=== PATIENT | female | born 1950 ===

== ENCOUNTER 2017-07-25 09:33 | Day surgery (SDC) | payer OTHER ==
[2017-07-25 10:10] VITALS: BMI 26.9
[2017-07-25 10:42] LABS: HEMOGLOBIN 13.5 g/dL (12.0-16.0); MEAN CELL VOLUME 81.7 fl (81.0-99.0); MEAN CORPUSCULAR HEMOGLOBIN 25.9 pg (27.0-31.0); MEAN CORPUSCULAR HGB CONC 31.8 g/dL (33.0-37.0); RBC 5.2 Mil/uL (3.80-5.20); RED CELL DISTRIBUTION WIDTH 14.1 % (11.5-14.5); WHITE BLOOD COUNT 7.1 K/uL (4.8-10.8)
[2017-07-25 10:55] LABS: BLOOD UREA NITROGEN 16 mg/dl (7-17); CALCIUM 9.3 mg/dL (8.4-10.2); GFR AFRICAN-AMERICAN > 60; GFR NON-AFRICAN AMERICAN > 60
[2017-07-25 10:57] VITALS: RESP 18
[2017-07-25 11:06] LABS: PARTIAL THROMBOPLASTIN TIME 27.6 Seconds (25.6-37.1); PROTHROMBIN TIME 10.5 Seconds (9.8-13.1)
[2017-07-25] MEDS ORDERED: Lidocaine 1% Inj (20ml) ONE (13:07)
[2017-07-25] MEDS ORDERED: Bupivacaine 0.5% Inj(30mL) ONE (13:07)
[2017-07-25] MEDS ORDERED: Propofol 10 mg/ml Inj (20 ML) ONE (14:27)
[2017-07-25] MEDS ORDERED: Midazolam 2 MG/2 ML VIAL ONE (14:27)
[2017-07-25] MEDS ORDERED: Lactated Ringer's 1,000 ML IV ONE (14:30)
--- NOTE | 2017-07-25 15:28 | PCM.SURG1 ---
Surgeon's Initial Post Op Note - Surgeon's Notes Surgeon: Dr Maza Steel Turner: Dr Andrade pGY3 Type of Anesthesia: General LMA Pre-Operative Diagnosis: right breast lesions x 2 Operative Findings: two breast masses Post-Operative Diagnosis: as above Operation Performed: excision of breast mass x2 Specimen/Specimens Removed: breast mass (2 lesions within same specimen) Estimated Blood Loss: EBL {In ML}: 10 Blood Products Given: N/A Drains Used: No Drains Post-Op Condition: Good Date of Surgery/Procedure: 07/25/17 Time of Surgery/Procedure: 15:28
[2017-07-25] MEDS ORDERED: Oxycodone/Acetaminophen 5/325 mg Tab PO PRN (15:29)
--- NOTE | 2017-07-25 15:29 | CP.SDSHP ---
Same Day Surgery H & P - History Proposed Procedure: right breast mass excision Pre-Op Diagnosis: right breast mass - Previous Medical/Surgical History Pain: 1. - Allergies Allergies: Allergies No Known Allergies Allergy (Verified 07/25/17 10:11) - Physical Exam Vital Signs: Vital Signs 07/25/17 07/25/17 10:56 11:01 Temperature 98.5 F Pulse Rate 66 66 Respiratory 18 Rate Blood Pressure 147/69 O2 Sat by Pulse 98 Oximetry Mental Status: Alert & Oriented x3 Neuro: WNL Heart: WNL Lungs: WNL - {Optional Preform as Required} Abdomen: WNL - Impression Impression: right breast mass Pt. Evaluated Today:Candidate for Anesthesia & Procedure: Yes Short Stay Discharge - Short Stay Discharge Admitting Diagnosis/Reason for Visit: N63.10 Disposition: HOME/ ROUTINE Referrals: FAMILY PROVIDER,NO [Primary Care Provider] -
--- NOTE | 2017-07-25 15:30 | RAD ---
HISTORY: pre-op COMPARISON: Upper TECHNIQUE: Chest PA and lateral FINDINGS: LUNGS: Questionable right upper lobe mass. PLEURA: No significant pleural effusion identified. No pneumothorax apparent. CARDIOVASCULAR: Normal. OSSEOUS STRUCTURES: No significant abnormalities. VISUALIZED UPPER ABDOMEN: Normal. OTHER FINDINGS: Questionable right hilar adenopathy. The finding is marked on the study for review. IMPRESSION: Indeterminate/suspicious findings right lung, right hilum. In the absence of comparison chest radiographs follow-up recommended. CT scan advised for further assessment.
[2017-07-25] MEDS: HYDROmorphone 0.5 mg/0.5 ml ISec IVP PRN ×2 (16:30→16:48)
[2017-07-25 17:35] VITALS: O2SAT 97
[2017-07-25 19:22] VITALS: BP 129/69; PULSE 69; TEMP 97.6
--- NOTE | 2017-07-26 05:02 | OP ---
PROCEDURE DATE: 07/25/2017 SURGEON: Ronda Maza MD LOAN INTERVIEWER: Dr. Andrade. ANESTHESIA: General. ANESTHESIA ADMINISTERED BY: Dr. Van. PREOPERATIVE DIAGNOSIS: Two right breast cutaneous and parenchymal lesions. POSTOPERATIVE DIAGNOSIS: Two right breast cutaneous and parenchymal lesions. PROCEDURE: Excision of two masses, right breast. DESCRIPTION OF OPERATION: With the patient in the supine position under adequate general anesthesia, the right breast was prepped and draped in the usual sterile manner. The patient was noted to have a lesion elevated above the skin level just adjacent and just above the right nipple within the areolar margin, which had a scabbed outer surface and there was a second cutaneous lesion approximately 2 inches lateral to this, which also had a mildly elevated cutaneous appearance. An elliptical incision was made to encompass both lesions and the lateral lesion was dissected off the underlying breast tissue along with the skin with no evidence of a deep parenchymal lesion. The areolar lesion was freed from the surrounding subcutaneous tissue and deep to the elevated skin lesion, was a rounded white soft mass with the appearance of either a sebaceous-type cyst or a ductal cystic lesion and the entire lesion was sharply dissected free of the surrounding breast tissue and removed along with the ellipse of skin. The operative site was examined for hemostasis and closure was performed with interrupted sutures of 3-0 Vicryl followed by running subcuticular suture of 4-0 Monocryl and Steri-Strips. Dry sterile dressing was applied. The patient tolerated the procedure well and transferred to recovery room in stable condition. Estimated blood loss for the procedure was 10 mL. Ronda Maza MD
--- NOTE | 2017-07-26 18:23 | CARD ---
APPROVED REPORT EKG Measurement Heart [id number] PA 124P5 [id number] <Conclusion> Normal sinus rhythm Normal ECG
== END 2017-07-25 19:35 | disposition home or self-care (01) ==
LOC: H.OPSURG 09:33
PROVIDERS: ATTEND Specialist
DX: N63.10 Unspecified lump in the right breast, unspecified quadrant (principal)
CPT/HCPCS: 11401; 19120; 36415; 71046; 80048; 85027; 85610; 85730; 88307; 93005; J0690; J1170; J2001; J2250; J2405; J2704; J3010; J7030; J7120

== ENCOUNTER 2017-08-21 09:15 | Inpatient (IN) | payer OTHER, SELFPAY ==
[2017-08-15 11:35] VITALS: BMI 23.8
[2017-08-21] MEDS ORDERED: Rocuronium 10 mg/ml (5 ml) ONE (13:23)
[2017-08-21] MEDS ORDERED: Propofol 10 mg/ml Inj (20 ML) ONE (13:23)
[2017-08-21] MEDS ORDERED: Succinylcholine 200 mg/10 ml Inj IV ONE (13:23)
[2017-08-21] MEDS ORDERED: Lidocaine 1% Inj (20ml) ONE (13:54)
[2017-08-21] MEDS ORDERED: Bupivacaine 0.5% Inj(30mL) ONE (13:54)
[2017-08-21] MEDS ORDERED: Lactated Ringer's 1,000 ML IV ONE ×2 (14:00→14:40)
[2017-08-21] MEDS ORDERED: Midazolam 2 MG/2 ML VIAL ONE (14:02)
[2017-08-21] MEDS ORDERED: ePHEDrine 50 mg/ml Inj ONE (14:58)
[2017-08-21] MEDS ORDERED: Nitroglycerin 2% Ointment Foilpak UD TOP ONE (15:39)
[2017-08-21] MEDS ORDERED: Labetalol 5mg/ml (4ml) ONE (15:44)
[2017-08-21] MEDS ORDERED: Oxycodone/Acetaminophen 5/325 mg Tab PO PRN (15:48)
--- NOTE | 2017-08-21 15:54 | PCM.SURG1 ---
Surgeon's Initial Post Op Note - Surgeon's Notes Surgeon: Dr Maza Drug Enforcement Administration Agent: Dr Andrade PGY3, Dr Cruz PGY2, Dr Mendez PGY1 Type of Anesthesia: General Endo Pre-Operative Diagnosis: invasive ductal Ca of right breast Operative Findings: see report Post-Operative Diagnosis: as above Operation Performed: right modified radical mastectomy Specimen/Specimens Removed: right breast w/ nipple complex, right axilla dissection Estimated Blood Loss: EBL {In ML}: 40 Blood Products Given: N/A Drains Used: Jose Post-Op Condition: Good Date of Surgery/Procedure: 08/21/17 Time of Surgery/Procedure: 15:54
[2017-08-21] MEDS ORDERED: Lactated Ringer's 1,000 ML IV SCH (16:00)
[2017-08-21] MEDS: HYDROmorphone 0.5 mg/0.5 ml ISec IVP PRN ×2 (16:30→16:45)
--- NOTE | 2017-08-21 17:33 | NM ---
HISTORY: [age] year old female with rightbreast cancer. TECHNIQUE: Informed consent obtained. Time-out procedure performed. Sterile technique utilized For separate injections -totaling - 1.0 mCi of 99m Tc filtered sulfur colloid (total volume of 10 ml) were administered into the right periareolar intra/subdermal locations 12, 3, 6 and 9 o'clock positions. Anterior and oblique projection images of the chest/ axilla were subsequently obtained. FINDINGS: Confirmation of the 4 sites of injection. One focus/ node of activity is seen filling between 1/3-1/2rd the distance between the injection sites and the right axillary marker. Right axillary lymph nodes per se are not clearly identified. IMPRESSION: Successful sentinel node procedure with 1 node of activity accumulating radionuclide between the periareolar injection sites and the right axilla. Comments: The case was subsequently discussed with Dr. Ronda Maza
[2017-08-22 07:25] LABS: MEAN CELL VOLUME 81.9 fl (81.0-99.0); MEAN CORPUSCULAR HEMOGLOBIN 26.7 pg (27.0-31.0); MEAN CORPUSCULAR HGB CONC 32.6 g/dL (33.0-37.0); RBC 4.48 Mil/uL (3.80-5.20); RED CELL DISTRIBUTION WIDTH 13.9 % (11.5-14.5); WHITE BLOOD COUNT 10.6 K/uL (4.8-10.8)
[2017-08-22 07:32] LABS: BLOOD UREA NITROGEN 16 mg/dl (7-17); CALCIUM 8.2 mg/dL (8.4-10.2); GFR AFRICAN-AMERICAN > 60; GFR NON-AFRICAN AMERICAN > 60
[2017-08-22 08:15] LABS: PARTIAL THROMBOPLASTIN TIME 19.4 Seconds (25.6-37.1); PROTHROMBIN TIME 11.2 Seconds (9.8-13.1)
[2017-08-22] MEDS ORDERED: Influenza Vaccine 18yr & older 0.5 ML/45 MCG SYR IM ONE (09:00)
[2017-08-22] MEDS ORDERED: Pneumococcal 23-Valent Vaccine IM ONE (09:00)
[2017-08-22] MEDS ORDERED: Enoxaparin 40 mg Syringe SC SCH (09:00)
--- NOTE | 2017-08-22 09:15 | CP.PCM.PN ---
Subjective - Date & Time of Evaluation Date of Evaluation: 08/22/17 Time of Evaluation: 09:10 - Subjective Subjective: General Surgery: Dr Maza Pt S&E on med/surg. Pt is POD#1 s/p right modified radical mastectomy. Pt reports she is doing well. Pain is minimal and well controlled on percocet. Denies any n/v, fevers or chills. Denies any paresthesias to the right arm. She has been using incentive spirometer. She is OOB and ambulating and tolerating diet. Perry w/ ~75cc overnight - serosanguinous Objective - Vital Signs/Intake and Output Vital Signs (last 24 hours): Temp Pulse Resp BP Pulse Ox 98.4 F 50 L 20 110/67 94 L 08/22/17 08:38 08/22/17 08:38 08/22/17 08:38 08/22/17 08:38 08/22/17 08:38 Intake and Output: 08/22/17 08/22/17 06:59 18:59 Output Total 475 Balance -475 - Medications Medications: Current Medications Enoxaparin Sodium (Lovenox) 40 mg SC DAILY SERAFIN PRN Reason: Protocol Lactated Ringer's (Lactated Ringer's) 1,000 mls @ 100 mls/hr IV .Q10H SERAFIN Last Admin: 08/21/17 22:36 Dose: 100 mls/hr Losartan Potassium (Cozaar) 50 mg PO BID [facility] Oxycodone/Acetaminophen (Percocet 5/325 Mg Tab) 1 tab PO Q4 PRN PRN Reason: Pain, moderate (4-7) Stop: 08/24/17 15:49 - Labs Labs: 08/22/17 06:00 08/22/17 06:00 PT 11.2 Seconds (9.8-13.1) 08/22/17 06:00 INR 1.0 (0.9-1.2) 08/22/17 06:00 APTT 19.4 Seconds (25.6-37.1) L 08/22/17 06:00 - Constitutional Appears: Non-toxic, No Acute Distress - Head Exam Head Exam: NORMOCEPHALIC - Eye Exam Eye Exam: Normal appearance - ENT Exam ENT Exam: Mucous Membranes Moist - Respiratory Exam Respiratory Exam: absent: Accessory Muscle Use, Respiratory Distress - Cardiovascular Exam Cardiovascular Exam: REGULAR RHYTHM. absent: Tachycardia Additional comments: Chest dressing is c/d/i - GI/Abdominal Exam GI & Abdominal Exam: Soft. absent: Distended, Firm, Tenderness - Extremities Exam Extremities Exam: absent: Pedal Edema - Neurological Exam Neurological Exam: Alert, Awake, Oriented x3 - Psychiatric Exam Psychiatric exam: Normal Affect, Normal Mood - Skin Skin Exam: Normal Color, Warm Assessment and Plan - Assessment and Plan (Free Text) Assessment: 67F POD#1 s/p right modified radical mastectomy for invasive ductal ca. Plan: monitor perry output CT abd/pel w/ IV contrast bone scan today pt will likely be d/c once imaging has been completed will d/w Dr Link Andrade, PGY3
--- NOTE | 2017-08-22 12:22 | OP ---
PROCEDURE DATE: 08/21/2017 SURGEON: Ronda Maza MD ASSISTANTS: Dr. Rachel and Dr. Cruz. ANESTHESIA: General, Dr. Kuhn. PREOPERATIVE DIAGNOSIS: Carcinoma of right breast. POSTOPERATIVE DIAGNOSIS: Carcinoma of right breast. PROCEDURE: Right modified radical mastectomy. DESCRIPTION OF OPERATION: With the patient in the supine position under adequate general anesthesia, the right chest and upper arm were prepped and draped in the usual sterile manner. The patient had a healing incision extending from just above the right nipple to 1 inch lateral to the areolar margin where cutaneous lesions had been removed and the elliptical incision was marked to include this incision. The upper incision was made, taken down through the subcutaneous tissue, and the upper skin flap was raised up to the upper edge of the pectoralis. The lower flap was also incised and then the lower flap raised down to the chest wall. There was no adherence or evidence of any involvement of the skin in raising of these flaps. The patient had undergone sentinel lymph node injection; however, scanning did not reveal localization to the axilla and while there was intermittent activity noted in the area of the axilla, no definite sentinel node could be identified. The breast was dissected off the chest wall and freed up to the area of the axilla, the axillary fascia was incised, the axillary vein was identified, and fatty and lymphatic tissue was dissected down from the area of the vein. Minimal identifiable lymphatic material was identified. Attachments were hemoclipped and the axillary contents were removed. The area adjacent to the chest wall and deep to the pectoralis was again checked with the NeoProbe and palpated and no significant axillary activity or palpable nodes were identified. The specimen was removed and the medial edge of the skin flap was marked with a silk suture. Hemostasis was achieved with cautery and a 19-[place] Jose drain was placed in the axilla and beneath the skin flap and then brought out through a lower lateral stab incision and after irrigation with sterile water, the wound was closed with orlin. A dry sterile compression dressing was applied. The patient tolerated the procedure well and transferred to the recovery room in stable condition. Estimated blood loss for the procedure was 40 mL. Ronda Maza MD MTDPamela
[2017-08-22] MEDS ORDERED: Iohexol 300 100 ML IJ ONE (12:57)
[2017-08-22] MEDS ORDERED: Sodium Chloride 0.9% 100 ML ONE (12:57)
--- NOTE | 2017-08-22 13:58 | CT ---
PROCEDURE: CT Chest, Abdomen and Pelvis with intravenous contrast HISTORY: r/o mets COMPARISON: None. TECHNIQUE: IV dose administered: 100 mL Omnipaque 300 Radiation dose: Total exam DLP = 833.2 mGy-cm. This CT exam was performed using one or more of the following dose reduction techniques: Automated exposure control, adjustment of the mA and/or kV according to patient size, and/or use of iterative reconstruction technique. FINDINGS: LUNGS: Clear. No nodule, mass or consolidation. MEDIASTINUM: Unremarkable. Normal caliber aorta and pulmonary arterial trunk. No aortic dissection. Normal size heart. LYMPH NODES: Unremarkable. PLEURA: Unremarkable. No pneumothorax. No pleural fluid. LIVER: Hepatic steatosis. Scattered calcified granulomas. No gross lesion or ductal dilatation. GALLBLADDER AND BILE DUCTS: Unremarkable. PANCREAS: Unremarkable. No gross lesion or ductal dilatation. SPLEEN: Unremarkable. ADRENALS: Unremarkable. No mass. KIDNEYS AND URETERS: Unremarkable. No hydronephrosis. No solid mass. VASCULATURE: Common origin of the brachiocephalic and left common carotid arteries. No aortic aneurysm. BOWEL: Unremarkable. No obstruction. No gross mural thickening. APPENDIX: Normal appendix. PERITONEUM: Unremarkable. No free fluid. No free air. LYMPH NODES: Enhancing right axillary lymph node measuring 1.3 x 0.9 cm (series 2, image 58). BLADDER: Unremarkable. REPRODUCTIVE: Unremarkable. BONES: Sclerotic 3.0 x 0.6 cm lesion in the right posterior 4th rib. Sclerotic focus in the anterolateral left 6th rib. Patchy sclerosis in the medial iliac bones adjacent to the sacroiliac joints bilaterally. Additional tiny scattered sclerotic foci in the iliac wings bilaterally. No acute fracture. OTHER FINDINGS: Hypoattenuating 1.2 x 1.6 cm left thyroid nodule. Nonvisualization of the right thyroid. Status post right mastectomy with postsurgical changes evident and surgical drain in place. IMPRESSION: Status post right mastectomy with postsurgical changes. Enhancing right axillary lymph node. Metastatic involvement cannot be excluded. Multiple osseous sclerotic foci including the posterior right 4th rib and anterolateral left 6th rib as well as in the iliac bones bilaterally. Metastatic involvement cannot be excluded. Hypoattenuating 1.6 cm left thyroid nodule. Dedicated thyroid ultrasound can be obtained for further evaluation as clinically warranted.
--- NOTE | 2017-08-22 14:44 | CP.PCM.DIS ---
Provider - Provider Date of Admission: 08/21/17 15:43 Attending physician: Ronda Maza MD Primary care physician: NO FAMILY PROVIDER Time Spent in preparation of Discharge (in minutes): 5 Hospital Course - Lab Results Lab Results: Most Recent Lab Values WBC 10.6 K/uL (4.8-10.8) 08/22/17 06:00 RBC 4.48 Mil/uL (3.80-5.20) 08/22/17 06:00 Hgb 12.0 g/dL (12.0-16.0) 08/22/17 06:00 Hct 36.7 % (34.0-47.0) 08/22/17 06:00 MCV 81.9 fl (81.0-99.0) 08/22/17 06:00 MCH 26.7 pg (27.0-31.0) L 08/22/17 06:00 MCHC 32.6 g/dL (33.0-37.0) L 08/22/17 06:00 RDW 13.9 % (11.5-14.5) 08/22/17 06:00 Plt Count 187 K/uL (130-400) 08/22/17 06:00 PT 11.2 Seconds (9.8-13.1) 08/22/17 06:00 INR 1.0 (0.9-1.2) 08/22/17 06:00 APTT 19.4 Seconds (25.6-37.1) L 08/22/17 06:00 Sodium 137 mmol/l (132-148) 08/22/17 06:00 Potassium 4.1 MMOL/L (3.6-5.0) 08/22/17 06:00 Chloride 103 mmol/L (98-107) 08/22/17 06:00 Carbon Dioxide 23 mmol/L (22-30) 08/22/17 06:00 Anion Gap 15 (10-20) 08/22/17 06:00 BUN 16 mg/dl (7-17) 08/22/17 06:00 Creatinine 0.8 mg/dl (0.7-1.2) 08/22/17 06:00 Est GFR ( Amer) > 60 08/22/17 06:00 Est GFR (Non-Af Amer) > 60 08/22/17 06:00 Random Glucose 91 mg/dL (65-105) 08/22/17 06:00 Calcium 8.2 mg/dL (8.4-10.2) L 08/22/17 06:00 - Hospital Course Hospital Course: 67M admitted on 08/21/17 s/p right modified radical mastectomy. Pt was kept overnight for pain control and to monitor for bleeding. Pt received CT abd/pel of chest and abd as well as bone scan POD#1 to assess for mets. Tolerated surgery well. D/c today 08/22 with Rx for pain control and follow up next in clinic. PT will be d/c with perry drain in place. Drain care instructions provided by nursing Discharge Exam - Head Exam Head Exam: NORMOCEPHALIC Discharge Plan - Discharge Medications Prescriptions: oxyCODONE/Acetaminophen [Percocet 5/325 mg Tab] 1 tab PO Q4 PRN #20 tab PRN Reason: Pain, Moderate (4-7) - Follow Up Plan Condition: GOOD Disposition: HOME/ ROUTINE Instructions: Mastectomy, New-Ortez Drain Additional Instructions: follow up with Dr. Maza in clinic next Take all medication as prescribed Patient can shower Saturday. Do not soak incisions; no pools, tubs, baths Call Dr. Maza if fever <100.4, pain, redness, swelling, drainage from incision Referrals: [facility] [Outside] Ronda Maza MD [Staff Provider] - FAMILY PROVIDER,NO [Primary Care Provider] -
[2017-08-22 16:20] VITALS: BP 114/64; PULSE 81; RESP 18; TEMP 98.9; O2SAT 96
--- NOTE | 2017-08-23 13:18 | NM ---
PROCEDURE: Whole Body Bone Scan HISTORY: r/o distant mets COMPARISON: None available. TECHNIQUE: Following administration of 22.4 miCu of Tc MDP multiplanar whole body images were obtained. FINDINGS: Evidence for bony metastatic disease: None. Degenerative uptake: None. Physiologic uptake: Normal physiologic activity in the kidneys. Other findings: None. IMPRESSION: No evidence of bony metastatic disease.
== END 2017-08-22 15:30 | disposition home or self-care (01) | DRG 258 ==
LOC: H.OPSURG 09:15 → H.MEDSURG1 15:43
PROVIDERS: ADMIT Specialist; ATTEND Specialist
PROC: 0HTT0ZZ Resection of Right Breast, Open Approach (ICD-10-PCS; principal; 2017-08-21 13:30)
PROC: 3E0234Z Introduction of Serum, Toxoid and Vaccine into Muscle, Percutaneous Approach (ICD-10-PCS; 2017-08-22)
DX: C50.911 Malignant neoplasm of unspecified site of right female breast (principal); I10 Essential (primary) hypertension; Z23 Encounter for immunization

== ENCOUNTER 2018-05-04 19:20 | Emergency (ER) | payer SELFPAY ==
[2018-05-04 19:21] VITALS: BMI 23.8
[2018-05-04] MEDS ORDERED: Sodium Chloride 0.9% 1,000 ML IV STA (20:18)
[2018-05-04 20:52] LABS: BASO % 0.3 % (0.0-2.0); EOS % 0.2 % (0.0-4.0); HEMOGLOBIN 13.9 g/dL (12.0-16.0); LYMPH # 1.6 K/uL (1.0-4.3); LYMPH % 15.4 % (20.0-40.0); MEAN CELL VOLUME 81.4 fl (81.0-99.0); MEAN CORPUSCULAR HEMOGLOBIN 26.1 pg (27.0-31.0); MEAN CORPUSCULAR HGB CONC 32.1 g/dL (33.0-37.0); MEAN PLATELET VOLUME 8.7 fl (7.2-11.7); MONO # 0.3 K/uL (0.0-0.8); MONO % 2.8 % (0.0-10.0); NEUT # 8.4 K/uL (1.8-7.0); NEUT % 81.3 % (50.0-75.0); RBC 5.34 Mil/uL (3.80-5.20); RED CELL DISTRIBUTION WIDTH 13.7 % (11.5-14.5); WHITE BLOOD COUNT 10.3 K/uL (4.8-10.8)
[2018-05-04 21:01] LABS: BLOOD UREA NITROGEN 16 mg/dl (7-17); CALCIUM 8.9 mg/dL (8.4-10.2); GFR NON-AFRICAN AMERICAN > 60
--- NOTE | 2018-05-04 21:45 | ED PDOC ---
HPI: Headache Time Seen by Provider: 05/04/18 20:01 Chief Complaint (Nursing): Headache Chief Complaint (Provider): Headache History Per: Patient History/Exam Limitations: no limitations Onset/Duration Of Symptoms: Days (7x days intermittently, worse since 2x hours ago) Current Symptoms Are (Timing): Still Present Severity: Moderate Associated Symptoms: Vomiting, Other (epigastric discomfort after vomiting. left ear pain for 1x week. dizziness.) Additional History Per: Patient Additional Complaint(s): 67 year old female with a past medical history of hypertension and breast cancer (mastectomy years ago) presents to the ED with complaints of dizziness (room spinning) accompanied by a headache and vomiting that started 2x hours ago when she was on her way home from [place]. Patient states she has had similar intermittent symptoms for the past 1x weeks, accompanied by left ear pain for 1x week. Patient states she had epigastric abdominal discomfort after vomiting today. Patient reports having similar symptoms a long time ago. Patient denies having diarrhea, chest pain, and fevers. PMD: None. Past Medical History Reviewed: Historical Data, Nursing Documentation, Vital Signs Vital Signs: Last Vital Signs Temp 97.8 F 05/04/18 19:22 Pulse 68 05/04/18 19:22 Resp 16 05/04/18 19:22 BP 155/82 H 05/04/18 19:22 Pulse Ox 99 05/04/18 19:22 - Medical History PMH: HTN, Malignancy (history of breast cancer) Denies: Chronic Kidney Disease - Surgical History Other surgeries: mastectomy - Family History Family History: States: No Known Family Hx - Social History Alcohol: None Drugs: Denies - Home Medications Home Medications: Ambulatory Orders Medication Instructions Recorded Losartan [Cozaar] 50 mg PO BID 08/15/17 oxyCODONE/Acetaminophen [Percocet 1 tab PO Q4 PRN #20 tab 08/22/17 5/325 mg Tab] Meclizine [Meclizine*] 25 mg PO Q6 PRN #30 tab 05/04/18 - Allergies Allergies/Adverse Reactions: Allergies Allergy/AdvReac Type Severity Reaction Status Date / Time No Known Allergies Allergy Verified 05/04/18 19:27 Review of Systems ROS Statement: Except As Marked, All Systems Reviewed And Found Negative Constitutional: Negative for: Fever ENT: Positive for: Ear Pain (left ear) Cardiovascular: Negative for: Chest Pain Gastrointestinal: Positive for: Vomiting, Abdominal Pain (epigastric discomfort after vomiting). Negative for: Diarrhea Neurological: Positive for: Headache, Dizziness (room spinning) Physical Exam - Reviewed Nursing Documentation Reviewed: Yes Vital Signs Reviewed: Yes - Physical Exam Appears: Positive for: Well, Non-toxic, No Acute Distress, Uncomfortable Head Exam: Positive for: ATRAUMATIC, NORMOCEPHALIC Eye Exam: Positive for: Normal appearance, EOMI. Negative for: Nystagmus ENT: Positive for: Normal ENT Inspection, TM Is/Are (normal) Neck: Positive for: Normal, Painless ROM, Supple Cardiovascular/Chest: Positive for: Regular Rate, Rhythm, Chest Non Tender Respiratory: Positive for: Normal Breath Sounds. Negative for: Respiratory Distress Gastrointestinal/Abdominal: Positive for: Normal Exam, Soft. Negative for: Tenderness, Mass, Guarding, Rebound Neurologic/Psych: Positive for: Alert, state appellate clerk II-XII (normal), Oriented (3x), Gait (steady). Negative for: Motor/Sensory Deficits, Aphasia, Facial Droop - Laboratory Results Result Diagrams: 05/04/18 20:47 05/04/18 20:47 - ECG O2 Sat by Pulse Oximetry: 99 (RA) Pulse Ox Interpretation: Normal - CT Scan/US CT head w/o contrast Other Rad Studies (CT/US): Read By Radiologist, Radiology Report Reviewed (see MDM note) - Progress Re-evaluation Time: 23:30 Condition: Re-examined, Improved Medical Decision Making Medical Decision Makin:01 Initial impression: 67 year old female with dizziness and headaches. Differential diagnoses include but are not limited to peripheral vertigo, benign positional vertigo, labyrinth vertigo, vestibular vertigo, cerebellar CVA, and central vertigo need to be considered. Initial plan: * CT head w/o contrast * EKG * BMP * troponin * CBC * udip * meclizine 25 mg PO once * IV NS 1,000 ml IV 1,000 mls/hr * reglan 10 mg IVP * reevaluation 21:51 CT head w/o contrast read and reviewed by radiologist FINDINGS: BRAIN There is considerable cerebellar atrophy, is patient on anticonvulsants? No acute intracranial hemorrhage or subdural collections VENTRICLES: No hydrocephalus. ORBITS: The orbits are unremarkable. SINUSES AND MASTOIDS: Nnon-pneumatized right mastoid versus fluid in a hypo-pneumatized mastoid, see series 3 image 24. The former is favored. Left maxillary sinusitis, possibly chronic. There is been attenuation of the medial wall, and there is a higher density substance in the anterior portion of the sinus BONES: No fracture. SOFT TISSUES: Unremarkable. MISCELLANEOUS: Questionable development of right internal auditory canal IMPRESSION: 1. Non-pneumatized right mastoid versus fluid in a hypo-pneumatized mastoid, see series 3 image 24. The former is favored. 2. Questionable development of right internal auditory canal 3. Left maxillary sinusitis, possibly chronic. There is been attenuation of the medial wall, and there is a higher density substance in the anterior portion of the sinus 4. There is considerable cerebellar atrophy, is patient on anticonvulsants? 5. No acute intracranial hemorrhage or subdural collections ------ Scribe Attestation: Documented byCarline Bello, acting as a scribe for Radha Spears MD. Provider Scribe Attestation: All medical record entries made by the Scribe were at my direction and personally dictated by me. I have reviewed the chart and agree that the record accurately reflects my personal performance of the history, physical exam, medical decision making, and the department course for this patient. I have also personally directed, reviewed, and agree with the discharge instructions and disposition. Disposition - Clinical Impression Clinical Impression: Vertigo, Headache, Sinusitis - Patient ED Disposition Is Patient to be Admitted: No Doctor Will See Patient In The: Office Counseled Patient/Family Regarding: Studies Performed, Diagnosis, Need For Followup - Disposition Referrals: [facility] [Outside] Davie Moore MD [Staff Provider] - Disposition: Routine/Home Disposition Time: 23:43 Condition: GOOD Additional Instructions: ANGÉLICA ELLIS, thank you for letting us take care of you today. Your provider was Radha Spears MD and you were treated for DIZZINESS,VOMITING. The emergency medical care you received today was directed at your acute symptoms. If you were prescribed any medication, please fill it and take as directed. It may take several days for your symptoms to resolve. Return to the Emergency Department if your symptoms worsen, do not improve, or if you have any other problems. Please contact your doctor or call one of the physicians/clinics you have been referred to that are listed on the Patient Visit Information form that is included in your discharge packet. Bring any paperwork you were given at [facility] with you along with any medications you are taking to your follow up visit. Our treatment cannot replace ongoing medical care by a primary care provider outside of the emergency department. Thank you for allowing the [facility] team to be part of your care today. If you had an X-Ray or CT scan: A Radiologist will review the ED reading if any change in treatment is needed we will contact you. If you had a blood, urine, or wound culture: It will take several days for the results, if any change in treatment is needed we will contact you. If you had an STI test: It will take 48 hours for the results. Please call after 1 week if you have not heard back. Prescriptions: Meclizine [Meclizine*] 25 mg PO Q6 PRN #30 tab PRN Reason: Dizziness Instructions: Vertigo (a Type of Dizziness), Headache, Adult (DC), Chronic Sinusitis Forms: If You Can (Lao) Print Language: SALVADOREAN
[2018-05-05 00:02] VITALS: BP 120/66; PULSE 70; RESP 18; TEMP 98; O2SAT 100
--- NOTE | 2018-05-05 06:37 | CARD ---
APPROVED REPORT Date of service: 05/04/2018 EKG Measurement Heart [id number] <Conclusion> Normal sinus rhythm Normal ECG
--- NOTE | 2018-05-05 14:18 | CT ---
Date of service: 05/04/2018 PROCEDURE: CT HEAD WITHOUT CONTRAST. HISTORY: headache dizziness COMPARISON: None available. TECHNIQUE: Axial computed tomography images were obtained through the head/brain without intravenous contrast. Radiation dose: Total exam DLP = 849.77 mGy-cm. This CT exam was performed using one or more of the following dose reduction techniques: Automated exposure control, adjustment of the mA and/or kV according to patient size, and/or use of iterative reconstruction technique. FINDINGS: HEMORRHAGE: No intracranial hemorrhage. BRAIN: No mass effect or edema. Wlwn-eh-jgabpoxl volume loss noted. Mild white matter changes suspicious for chronic microvascular ischemic changes. VENTRICLES: Unremarkable. No hydrocephalus. CALVARIUM: Unremarkable. PARANASAL SINUSES: There is almost complete opacification of the left maxillary sinus. Mild mucosal thickening in the left sphenoid. MASTOID AIR CELLS: There is a complete opacification of the right mastoid suggestive of mastoid effusion and possible mastoiditis. Small opacity at the right middle air also noted. The left mastoid is unremarkable. OTHER FINDINGS: None. IMPRESSION: No evidence of acute intracranial hemorrhage mass effect or midline shift. Volume loss. Possible mild chronic microvascular ischemic disease. Almost complete opacification of the left maxillary sinus. Right mastoid effusion suspicious for mastoiditis. Preliminary report contains concordant findings was submitted to the referring [facility] radiology
== END 2018-05-05 00:05 | disposition home or self-care (01) ==
LOC: H.ER 19:20
DX: R42 Dizziness and giddiness (principal); R51 Headache; J32.0 Chronic maxillary sinusitis; I10 Essential (primary) hypertension; Z85.3 Personal history of malignant neoplasm of breast
CPT/HCPCS: 70450; 80048; 84484; 85025; 93005; 96374; 99285; J2765; J7030